=== PATIENT | male | born 1975 | race African-American/Black ===

== ENCOUNTER 2021-02-28 15:26 | Outpatient (CLI) | payer OTHER, SELFPAY ==
--- NOTE | ~2021-02-28 | MR_ITS ---
EXAMINATION: MR brain/brain stem wo/w con DATE: 02/28/2021 16:20 INDICATION: Dizziness. TECHNIQUE: Magnetic resonance imaging (MRI) of the brain and brainstem was performed without and with 18 mL MultiHance intravenous contrast. Sequences included sagittal and axial T1-weighted FSE, axial diffusion-weighted FS EPI, axial T2*-weighted GRE, axial T2-weighted FLAIR Propeller, and axial T2-we ighted Propeller. Postcontrast sequences included axial and coronal T1-weighted FSE. Apparent diffusi on coefficient (ADC) maps were created. COMPARISON: Head CT 04/17/2017 FINDINGS: There is no intracranial hemorrhage, acute infarction, or abnormal intracranial mass lesion . The ventricles are normal in size. The paranasal sinuses are clear. The orbits are normal. The mast oid air cells are normal. IMPRESSION: 1. Normal brain. Reviewed, dictated and finalized at location A. IMPRESSION: 1. Normal brain.
[2021-02-28 15:55] LABS: Estimated Glomerular Filt Rate > 60
== END 2021-02-28 15:27 | disposition home or self-care (01) ==
PROVIDERS: PCP Internal Medicine; Visit Provider Nurse Practitioner
DX: R42 Dizziness and giddiness (principal)
CPT/HCPCS: 70553; A9577

== ENCOUNTER 2023-10-01 06:43 | Day surgery (SDC) | payer OTHER, SELFPAY ==
[2023-09-08 10:56] VITALS: BMI 32.1
[2023-09-16 14:00] VITALS: BMI 31.8
--- NOTE | 2023-09-16 14:56 | PC.NURSE ---
LATE NOTE, 1400, PREOP INTERVIEW COMPLETE, EXCEPT PT STILL NEEDS PREOP INSTRUCTIONS. PT WAS LEAVING WORK AND SAID HE WOULD CALL BACK FOR INSTRUCTIONS.
[2023-10-01 07:49] VITALS: BMI 31.9
[2023-10-01 07:51] VITALS: BP 139/96; PULSE 88; RESP 18; TEMP 36.4; O2SAT 98
[2023-10-01] MEDS: LACTATED RINGERS 1,000 ML 150 ML IV CONT (08:02)
[2023-10-01 08:06] LABS: Glucose Point of Care 131 mg/dl (65-105)
--- NOTE | 2023-10-01 08:10 | P.PNAN_ITS ---
Anes - Initial Pre Proc Eval Procedure: Operation Date: 10/01/23 09:00 Proposed Procedures p Screening Colonoscopy - Jeramie Garcia MD Date/Time: 10/01/23 08:10 Surgeon: Jeramie Garcia MD Pre Op Diagnosis: Neoplasm Screening Patient Data Age: 48 Gender: M Height: 1.73 m Weight: 95.4 kg Last Vital Signs Temp 36.4 C 10/01/23 07:51 Pulse 88 10/01/23 07:51 Resp 18 10/01/23 07:51 BP 139/96 H 10/01/23 07:51 Pulse Ox 98 10/01/23 07:51 O2 Del Method Room Air 10/01/23 07:51 Allergies Allergy/AdvReac Type Severity Reaction Status Date / Time No Known Allergies Allergy Verified 09/16/23 13:57 Home Medications Medication Instructions Recorded Confirmed Type ropinirole 3 mg tablet See Rx Instructions .Route 03/27/22 10/01/23 Rx .COMPLEX #270 tabs nortriptyline 25 mg capsule See Rx Instructions .Route 05/27/22 10/01/23 Rx .COMPLEX #120 caps escitalopram oxalate 10 mg tablet 10 mg PO HS 09/16/23 10/01/23 History metformin 500 mg tablet,extended 500 mg PO DAILY 09/16/23 10/01/23 History release 24 hr rosuvastatin 20 mg tablet 20 mg PO HS 09/16/23 10/01/23 History Laboratory Tests 10/01/23 08:01 POC Capillary Glucose 131 H mg/dl (65-105) Patient hx anesthesia problems: none Family hx anesthesia problems: none Results Review: All pre-operative results and documents have been reviewed as part of the pre- operative evaluation. [facility] Past Medical History Medical History (Updated 10/01/23 @ 08:10 by Tahir Magaña MD) Diabetes EDEN (obstructive sleep apnea) Restless legs syndrome Surgical History Surgical History (Updated 01/18/21 @ 11:37 by Tahira Hurley NP) Hx of decompression of ulnar nerve 2005 at [facility] U Left Elbow Family History Family History Father Hypertension Social History Social History Smoking status: Never smoker Alcohol intake: never Substance use: never Substance use type: does not use Living arrangements: with family Spiritual care concerns: No Anes - Eval Final PreProcedure Day of Procedure 10/01/23 08:10 Patient weight: overweight Heart: regular rate and rhythm Lungs: clear to auscultation Airway: Mallampati scale class II Neurological: alert and oriented Last oral intake: >/= 8 hours ASA classification: III Emergent: no Anesthesia type and monitoring: general GIVS and standard monitoring Results Review: All pre-operative results and documents have been reviewed as part of the pre- operative evaluation. Informed Consent: The patient's anesthetic plan and its attendant risks and benefits were discussed with the patient/family/POA. Questions were solicited and answers provided to the satisfaction of the patient/family/POA.
--- NOTE | 2023-10-01 08:24 | P.HP_ITS ---
History of Present Illness History of Present Illness Consent: Risks, benefits, and alternatives have been discussed and questions answered. Patient agrees to proceed with procedure. Chief complaint: Neoplasm Screening Narrative: Telly Orellana is a 48 year old male presents for screening colonoscopy. Patient's current weight appetite and bowel are normal. Patient denies abdominal pain. He has had no bleeding. Family history noncontributory. [facility] Past Medical History Medical History (Updated 10/01/23 @ 08:24 by Jeramie Garcia MD) Diabetes EDEN (obstructive sleep apnea) Restless legs syndrome Surgical History Surgical History (Updated 01/18/21 @ 11:37 by Tahira Hurley NP) Hx of decompression of ulnar nerve 2005 at [facility] U Left Elbow Family History Family History Father Hypertension Social History Social History Smoking status: Never smoker Alcohol intake: never Substance use: never Substance use type: does not use Living arrangements: with family Spiritual care concerns: No Meds Home Medications and Allergies Home Medications Medication Instructions Recorded Confirmed Type ropinirole 3 mg tablet See Rx Instructions .Route 03/27/22 10/01/23 Rx .COMPLEX #270 tabs nortriptyline 25 mg capsule See Rx Instructions .Route 05/27/22 10/01/23 Rx .COMPLEX #120 caps escitalopram oxalate 10 mg tablet 10 mg PO HS 09/16/23 10/01/23 History metformin 500 mg tablet,extended 500 mg PO DAILY 09/16/23 10/01/23 History release 24 hr rosuvastatin 20 mg tablet 20 mg PO HS 09/16/23 10/01/23 History Allergies Allergy/AdvReac Type Severity Reaction Status Date / Time No Known Allergies Allergy Verified 09/16/23 13:57 Vital Signs Vital Signs - 24 hr 10/01/23 07:51 Temperature 97.6 F Pulse Rate 88 Respiratory Rate 18 Blood Pressure 139/96 H Pulse Oximetry 98 Oxygen Delivery Room Air Assessment and Plan Assessment and plan (1) Encounter for screening colonoscopy: Code(s): Z12.11 - Encounter for screening for malignant neoplasm of colon Status: Acute Assessment and Plan: Patient presents today for screening colonoscopy. He appears to be at average risk for colon polyps.
[2023-10-01 09:26] VITALS: BP 112/76; PULSE 92; RESP 18; O2SAT 97
[2023-10-01 09:36] VITALS: BP 109/78; PULSE 82; RESP 16; O2SAT 99
[2023-10-01 09:46] VITALS: BP 112/74; PULSE 78; RESP 16; O2SAT 99
--- NOTE | 2023-10-01 09:46 | WPDANESPN ---
Anes - Prog Note Post-Op Date/Time: 10/01/23 09:46 Cardiovascular status: normal Respiratory status: normal Airway patency: baseline Mental status: baseline Post-Op hydration status: normal Vital Signs: Last Vital Signs Temp 36.4 C 10/01/23 07:51 Pulse 82 10/01/23 09:36 Resp 16 10/01/23 09:36 BP 109/78 10/01/23 09:36 Pulse Ox 99 10/01/23 09:36 O2 Del Method Room Air 10/01/23 09:36 Pain Score (VAS): 0/10 I/O: Intake & Output 09/30/23 10/01/23 10/01/23 23:59 07:59 15:59 Intake Total 200 Balance 200 10/01/23 08:01 POC Capillary Glucose 131 H Patient Feedback: Patient satisfied with anesthetic care.
== END 2023-10-01 10:39 | disposition home or self-care (01) ==
PROVIDERS: PCP Family Medicine; Visit Provider Internal Medicine Gastroenterology
PROC: 0DJD8ZZ Inspection of Lower Intestinal Tract, Via Natural or Artificial Opening Endoscopic (ICD-10-PCS; CPT 45378; principal; 2023-10-01 09:00)
DX: Z12.11 Encounter for screening for malignant neoplasm of colon (principal); K64.8 Other hemorrhoids
CPT/HCPCS: 45378

== ENCOUNTER 2023-12-23 22:54 | Emergency (ER) | payer OTHER, SELFPAY ==
--- NOTE | ~2023-12-23 | CT_ITS ---
CT of the Abdomen and Pelvis: Indication: Abdominal pain, rectal bleeding Technique: 2.5 mm axial scans were obtained through the abdomen and pelvis following intravenous adm inistration of 100 cc of Omnipaque 350. Dose reduction technique was used on this scan by utilizing a utomated exposure control and iterative reconstruction technique. The dose-length product (DLP) was 6 61.02 mGy-cm. Findings: Scans through the lung bases demonstrate linear scarring or atelectasis right lower lobe. The liver, spleen, pancreas, gallbladder, adrenals and kidneys are within normal limits. No evidence of aortic aneurysm. No lymphadenopathy. No bowel obstruction or bowel wall thickening. There is no evidence to suggest acute appendicitis. Images through the pelvis were performed. Urinary bladder unremarkable. No pelvic mass seen. No ascit es. Impression: No significant abnormalities seen. Reviewed, dictated and finalized at [facility]. Impression: No significant abnormalities seen.
[2023-12-23 22:55] VITALS: BP 139/78; PULSE 92; RESP 20; TEMP 36.2; O2SAT 98
[2023-12-24 01:36] VITALS: BP 131/83; PULSE 81; RESP 18; O2SAT 98
[2023-12-24 02:04] LABS: Basophils Percent Auto 0.3 % (0.2-1.2); Eosinophils Absolute Auto 0.2 K/mm3 (0-0.3); Eosinophils Percent Auto 2.6 % (0-4.4); Hematocrit 42.2 % (42.0-52.0); Hemoglobin 13.6 g/dL (14.0-18.0); Immature Granulocyte Absolute 0.02 K/mm3 (0.00-0.031); Immature Granulocyte Percent A 0.3 % (0-0.5); Lymphocytes Absolute Auto 2.24 K/mm3 (0.9-3.2); Lymphocytes Percent Auto 36.5 % (18.3-44.2); Mean Corpuscular HGB Conc 32.2 g/dl (32-36); Mean Corpuscular Hemoglobin 27.3 pg (26-34); Mean Corpuscular Volume 84.6 fl (80-100); Mean Platelet Volume 9.5 fl (7.4-10.4); Monocytes Absolute Auto 0.5 K/mm3 (0.1-0.6); Monocytes Percent Auto 7.3 % (2.6-8.5); Neutrophils Absolute Auto 3.2 K/mm3 (1.3-6.7); Platelet Count Result 271 k/mm3 (150-375); Red Blood Count 4.99 M/mm3 (4.6-6.20); Red Cell Distribution Width 14.3 % (11.5-14.5); White Blood Count 6.1 K/mm3 (4.5-10.0)
[2023-12-24 02:15] LABS: Prothrombin Time 13.2 Seconds (11.1-14.7)
[2023-12-24 02:18] LABS: Alanine Aminotransferase 64 U/L (6-50); Albumin Level 4.6 g/dL (3.5-5.1); Alkaline Phosphatase 84 U/L (38-126); Anion Gap 9 mmol/L (4-12); Aspartate Amino Transferase 33 U/L (17-59); Bilirubin,Total 0.4 mg/dL (0.2-1.3); Blood Urea Nitrogen 14 mg/dL (9-20); Calcium 9.1 mg/dL (8.4-10.2); Carbon Dioxide 24 mmol/L (22-30); Chloride 108 mmol/L (98-107); Estimated CRCL calculation 74 ml/min; Estimated Glomerular Filt Rate > 60; Glucose 160 mg/dL (65-110); Potassium 3.9 mmol/L (3.4-5.0); Sodium 141 mmol/L (137-145)
--- NOTE | 2023-12-24 06:22 | PC.NURSE ---
ok to not get 2nd confirmation lab tube per erp dr reed
[2023-12-24 06:27] VITALS: BP 128/71; PULSE 73; RESP 18; O2SAT 100
--- NOTE | 2023-12-24 06:52 | ED.GENADULT ---
HPI - General Adult General Chief complaint: GI Bleed Stated complaint: blood in stool Time Seen by Provider: 12/24/23 01:59 History of Present Illness HPI narrative: Patient is a 40-year-old gentleman who presents emergency department with chief complaint of rectal bleeding. The patient reports that he has been on pain medications reports he has had some hard stools. Patient reports he had a bowel movement today and had bright red blood in the toilet. Patient reports he had some discomfort in the rectal area and for reports that he has pain to have a bowel movement following. Patient denies being on blood thinners reports that he has had a colonoscopy in the recent past Related Data Home Medications Medication Instructions Recorded Confirmed escitalopram oxalate 10 mg tablet 10 mg PO HS 09/16/23 10/01/23 metformin 500 mg tablet,extended 500 mg PO DAILY 09/16/23 10/01/23 release 24 hr rosuvastatin 20 mg tablet 20 mg PO HS 09/16/23 10/01/23 Allergies Allergy/AdvReac Type Severity Reaction Status Date / Time No Known Allergies Allergy Verified 09/16/23 13:57 Review of Systems Review of Systems: A 10 system review of systems was completed on the patient and is negative except for what is stated in the HPI. Nursing and ancillary documentation was reviewed. [facility] Past Medical History Medical History Diabetes EDEN (obstructive sleep apnea) Restless legs syndrome Surgical History Surgical History Hx of decompression of ulnar nerve 2006 at [facility] U Left Elbow Family History Family History Father Hypertension Social History Social History Smoking status: Never smoker Alcohol intake: never Substance use: never Substance use type: does not use Living arrangements: with family Spiritual care concerns: No Exam Narrative: GENERAL: Well-appearing, well-nourished, and in no acute distress. HEAD: Normocephalic, atraumatic. EYES: PERRLA and EOMI. ENT: Nares clear, no rhinorrhea or epistaxis. Mucous membranes moist. NECK: Supple. CHEST: Clear to auscultation. No respiratory distress. HEART: Regular rate and rhythm. No murmur heard. Normal peripheral pulses. ABDOMEN: Soft, mild diffuse tenderness, nondistended, normal active bowel sounds. : Rectal exam showed small amount of blood in the rectal vault, EXTREMITIES: Normal range of motion. No edema. SKIN: Warm, dry, no rash. NEURO: No focal deficits. Alert and oriented x3. PSYCH: Normal mood and affect. Course Vital Signs Vital signs: Vital Signs Temperature 36.2 C L 12/23/23 22:55 Pulse Rate 92 12/23/23 22:55 Respiratory Rate 20 12/23/23 22:55 Blood Pressure 139/78 12/23/23 22:55 Pulse Oximetry 98 12/23/23 22:55 Oxygen Delivery Room Air 12/23/23 22:55 Temperature 36.2 C L 12/23/23 22:55 Pulse Rate 73 12/24/23 06:27 Respiratory Rate 18 12/24/23 06:27 Blood Pressure 128/71 12/24/23 06:27 Pulse Oximetry 100 12/24/23 06:27 Oxygen Delivery Room Air 12/23/23 22:55 Medical Decision Making [facility] Narrative Medical decision making narrative: Differential diagnosis includes diverticulitis, colitis, intra-abdominal infection, abscess, anal fissure, hemorrhoids Laboratory studies were obtained the patient showed a hemoglobin of 13.6 this is within 1 g the patient's previous levels from 2020 electrolytes are within normal limits. CT scan of the abdomen pelvis showed Findings:? Scans through the lung bases demonstrate linear scarring or atelectasis right lower lobe. The liver, spleen, pancreas, gallbladder, adrenals and kidneys are within normal limits.? No evidence of aortic aneurysm.? No lymphadenopathy. No bowel obstruction or bowel wal
== END 2023-12-24 07:04 | disposition home or self-care (01) ==
PROVIDERS: Emergency Provider Emergency Medicine; PCP Family Medicine
DX: K62.5 Hemorrhage of anus and rectum (principal); E11.9 Type 2 diabetes mellitus without complications; G47.33 Obstructive sleep apnea (adult) (pediatric); G25.81 Restless legs syndrome; Z79.84 Long term (current) use of oral hypoglycemic drugs; Z79.899 Other long term (current) drug therapy
CPT/HCPCS: 36415; 74177; 80053; 85025; 85610; 85730; 86850; 86900; 86901; 99284; Q9967

== ENCOUNTER 2024-04-15 13:30 | Outpatient (RCR) | payer OTHER, SELFPAY ==
--- NOTE | 2024-02-19 16:23 | OTOPEVAL1 ---
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 He is 10 weeks out. He presents in a wrist cock up brace. Reported Pain Level Pain Score 0: Self Report Additional Pain Score Comments Patient reports no pain at rest. Reporting 7/10 ulnar sided wrist pain with forearm rotation. Reporting 7/10 pain with passive wrist ROM. Assessment OT Clinical Summary Patient referred to OT with a decline in left hand use following left wrist arthroscopy with extensive debridement and TFCC repair. Patient experiencing residual pain, stiffness, and weakness that limits return to functional hand use . Skilled OT indicated to maximize functional use of the left UE through therapeutic exercise, modalities, manual therapy, and HEP instruction and progression. Plan of Care Interventions Therapeutic Exercise,Manual Therapy,Therapeutic Activities,Hot Pack/Cold Pack,Ultrasound,Paraffin OT Services Indicated Yes Treatment Frequency and 1-2x/week for 8 visits Duration These treatments will address the objective and functional deficits as defined above. The patient will be advanced safely and appropriately in order for the patient to progress towards his/her prior level of function. Additional exercises will be introduced and as well as a comprehensive home exercise program upon discharge, if needed, ?to ensure carryover of functional gains achieved in the clinic. This treatment plan has been reviewed and agreement upon by the patient.
--- NOTE | 2024-02-19 16:23 | OPREHPOC ---
Outpatient Therapy Plan of Care This is a Multidisciplinary Plan of Care that may contain components documented by all disciplines (PT, OT, and ST.) OT Problem 1 OT Problem #1 Knowledge Deficit OT Goal 1 Goal 1. Patient to be independent with HEP. Target Visit 7 OT Problem 2 OT Problem #2 Impaired Sensation OT Goal 1 Goal 1. Patient to progress to gross wrist strengthening, being able to tolerate 2 lb. free weight in all planes, x20 reps. 2. Increase left small finger flexion strength as demonstrated by being able to touch the finger tip to the palm when making a fist. 3. 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 Target Visit 7
--- NOTE | 2024-02-26 10:36 | PCOTNOTE ---
Patient did not show up for scheduled appointment this date. Called patient and left voicemail regarding missed appointment and reminded him of his next.
--- NOTE | 2024-03-15 14:08 | PCOTNOTE ---
Patient called and cancelled today's re-evaluation due to having COVID. Rescheduled his re-eval.
--- NOTE | 2024-03-30 13:53 | OTOPPROG ---
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 He has weaned out of the wrist cock up brace and is using his left hand again for ADLs and household tasks. He reports he feels the residual weakness and stiffness that he notices when turning a door knob or when trying to fully extend the wrist. Pain with weight bearing through an extended wrist, he has not been able to do a push up. Assessment OT Clinical Summary Patient referred to OT with a decline in left hand use following left wrist arthroscopy with extensive debridement and TFCC repair. Patient is making excellent progress with functional ROM and strength. Forearm and wrist ROM is near symmetrical to the right side. The small finger is now able to touch the palm when attempting to make a fist. Left small finger measuring 2 cm gap between the finger tip and the DPC. 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 Continue skilled OT indicated to maximize functional use of the left UE through therapeutic exercise, modalities, manual therapy, and HEP instruction and progression. Plan of Care Interventions Therapeutic Exercise,Manual Therapy,Therapeutic Activities,Hot Pack/Cold Pack,Ultrasound,Paraffin OT Services Indicated Yes Treatment Frequency and 1-2x/week for 6 visits Duration These treatments will address the objective and functional deficits as defined above. The patient will be advanced safely and appropriately in order for the patient to progress towards his/her prior level of function. Additional exercises will be introduced and as well as a comprehensive home exercise program upon discharge, if needed, ?to ensure carryover of functional gains achieved in the clinic. This treatment plan has been reviewed and agreement upon by the patient.
--- NOTE | 2024-04-15 14:27 | OTOPDC ---
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 He reports no functional limitations at this time, just reporting some residual weakness in the left wrist and left property administrator strength. He is reporting no pain. Reported Pain Level Pain Score 0: Self Report Assessment OT Clinical Summary Patient referred to OT with a decline in left hand use following left wrist arthroscopy with extensive debridement and TFCC repair. Patient presented today stating he's doing so well he'd like to be discharged. Reviewed HEP today. Patient is being discharged with HEP. Please refer to note dated 04/02/24 for most recent progress update/summary. Plan of Care OT Services Indicated No
== END 2024-04-15 15:01 | disposition home or self-care (01) ==
LOC: ANHGOSHOT 13:30
PROVIDERS: PCP Family Medicine
DX: M24.032 Loose body in left wrist (principal); M25.532 Pain in left wrist; M24.132 Other articular cartilage disorders, left wrist
CPT/HCPCS: 97018; 97110; 97165